=== PATIENT | male | born 1935 | race Caucasian/White ===

== ENCOUNTER 2017-01-27 20:52 | Emergency (ER) | payer MEDICARE, MEDICAID ==
[~2017-01-27] VITALS: Ht 172.7 cm; Wt 80.9 kg
[~2017-01-27 20:52] MED LIST: HYDR-2164 PO
[2017-01-27 20:53] VITALS: Ht 172.7 cm; Wt 80.9 kg
--- OUTSIDE RECORDS SUMMARY | 2017-01-27 20:57 | XMS REPORT ---
Author Author [facility]. Organization [facility] Address [address] [place] [address] Phone [phone] Summary purpose CCDA Sent to [facility] Chief Complaint and Reason for Visit No authorized Reason for Visit (Admitting Diagnosis) is available for this visit. Problem list Condition Status Certainty Chronicity Onset .Fracture of Pelvis Active Encounters The following conditions tracked for encounter diagnoses were recorded for this visit: Finding or Diagnosis Status Certainty Chronicity Onset .Fracture of Pelvis Active Medications Home Medications Medication Directions Started Status Source Effexor XR 150 mg capsule,extended release 1 tablet oral 2 times per day Current Family recall from memory Wellbutrin 75 mg tablet 1 tablet oral -Daily Current Family recall from memory bacitracin Topical 1 applicator Top -Daily Current diltiazem CD 180 mg capsule,extended release 24 hr 180 mg Oral -Daily Current docusate sodium 100 mg tablet 100 mg Oral 2 times per day Current donepezil 10 mg tablet 10 mg Oral At bed time Current finasteride 5 mg tablet 5 mg Oral -Daily Current Lopressor Oral 25 mg Oral -Daily Current midodrine 10 mg tablet 10 mg Oral 2 times per day Current oxybutynin chloride 5 mg tablet 5 mg Oral 3 times per day Current QUEtiapine 25 mg tablet 12.5 mg Oral 2 times per day Current venlafaxine 75 mg tablet 150 mg Oral 2 times per day Current acetaminophen 325 mg tablet 1 tablet Oral As Needed Every 4 Hours Current Milk of Magnesia Oral 30 ml Oral As needed Current Allergies, adverse reactions, alerts Allergen Category Ingredient Status Reaction Severity Onset Penicillins Drug Penicillins Active muscle relaxers Drug muscle relaxers Active lisinopril Drug lisinopril Active Immunizations No immunizations recorded for this patient visit Relevant diagnostic tests and/or laboratory data RESULTS :30:00 Discharge Summary To skilled unit at [place]. :54:12 Discharge Summary Pt admitted with fx of left iliac crest of pelvis, and three ribs on left. Pain control and mobility and monitoring of blood loss. Has had a week in skilled - has improved markedly in re to pain control and mobility - remains confused, but is improved. CBC :50:00 Result Normal Range Units WBC 7.95 5.8-10.8 x103/mm3 Neutrophil % 61.9 50-70 % Lymph % L 12.6 20-50 % [place] % H 22.8 1.0-9.0 % Eosinophil % 2.4 0-4 % Basophil % 0.3 0-2 % Neutrophil # 4.93 3.0-7.0 x103/mm3 Lymph # 1.00 1.0-4.0 x103/mm3 [place] # H 1.81 0.0-0.8 x103/mm3 Eosinophil # 0.19 0-0.5 x103/mm3 Basophil # 0.02 0-0.2 x103/mm3 RBC L 4.51 4.60-6.20 x103/mm3 HGB 14.5 14.0-18.0 g/dl HCT 43.9 42.0-52.0 % MCV H 97.3 80-94 FL MCH H 32.2 27.0-31.0 pg MCHC 33.0 32.0-36.0 g/dl RDW 12.8 12-15 % Platelet 153 150-400 x103/mm3 MPV H 10.8 6.0-10.0 FL Chemistry Group :50:00 Result Normal Range Units Sodium 140 134-145 mmol/L Potassium 4.6 3.6-5.0 mmol/L Chloride 103 98-107 mmol/L CO2 29 22-30 mmol/L Glucose 87 75-110 mg/dl BUN H 46 9-20 mg/dl Creatinine 1.6 0.8-1.7 mg/dl Calcium 9.3 8.4-10.2 mg/dl History of procedures No procedures recorded for this patient visit. Functional status Functional Status Finding Observation Time Weight Bearing Statu Full :07 Transferring/Ambulat Dependent :24 Bathing Dependent :24 Dressing Dependent :24 Eating Dependent :24 Drinking Dependent :24 Toileting Dependent : Able to Turn Self in Needs Assistance :24 Cognitive Status Finding Observation Time Level of Consciousne Confused :49 Oriented to Person Yes :[address] No :49 Oriented to Time No :49 Combative Mild :02 Eyes - PAUL No :49 Vital signs Type Value Date Respirations 16 :51 Pulse 66 :51 O2 Saturation 100% :51 Systolic Blood Press 135mm/HG :51 Diastolic Blood Pres 86mm/HG :51 Temperature (Fahr) 97.6Degrees :51 Height 158.8in :30 Weight 158.8LB :30 Social history Type Value Smoking Status NEVER SMOKER Treatment Plan Treatment Plan at Dismiss to OR - skilled care. PT and OT for mobility and self care. See orders. xpath-functions" xmlns:xs="http://www.[employer]/2000/Tiangua OnlineLSchema" />Plan to decrease pain meds as able, and hope mental status will clear as this is xpath-functions" xmlns:xs="http://www.Moblyorg/2000/Tiangua OnlineLSchema" />done. Cont seroquel for now due to hallucinations. High risk for fall and xpath-functions" xmlns:xs="http://www.[employer]/2000/Tiangua OnlineLSchema" />injury. Hospital discharge instructions No discharge instruction text is available for this visit.
--- OUTSIDE RECORDS SUMMARY | 2017-01-27 20:57 | XMS REPORT ---
Author Author [facility]. Organization [facility] Address [address] [place] [address] Phone [phone] Summary purpose CCDA Sent to [facility] Chief Complaint and Reason for Visit Admit Diagnosis 1 TRAUM FX AFTERCARE NEC Problem list Condition Status Certainty Chronicity Onset [...] Relevant diagnostic tests and/or laboratory data RESULTS [id number]:30:00 Discharge Summary To skilled unit at [place]. :54:12 Discharge Summary Pt admitted with fx [...] % Lymph % L 12.6 20-50 % [place] % H 22.8 1.0-9.0 % Eosinophil % 2.4 0-4 % Basophil % 0.3 0-2 % Neutrophil # 4.93 3.0-7.0 x103/mm3 Lymph # 1.00 1.0-4.0 x103/mm3 [place] # H 1.81 0.0-0.8 x103/mm3 Eosinophil # [...] Treatment Plan Treatment Plan at Dismiss to [place] - skilled care. PT and OT for mobility and self care. See orders. xpath-functions" xmlns:xs="http://www.Jaspersoft/2000/MusiCareschema" />Plan to decrease pain meds as able, and hope mental status will clear as this is xpath-functions" xmlns:xs="http://www.[employer]asp[employer]/2000/MusiCareschema" />done. Cont seroquel for now due to hallucinations. High risk for fall and xpath-functions" xmlns:xs="http://www.Jaspers[employer]/2000/NuView Systemsa" />injury. Hospital discharge instructions No discharge instruction text is available for this visit.
--- OUTSIDE RECORDS SUMMARY | 2017-01-27 20:57 | XMS REPORT | Continuity of Care Document ---
Author Author [facility] Organization [facility] Address Unknown Phone Unavailable Allergies Active Description Code Type Severity Reaction Onset Reported/Identified Relationship to Patient Clinical Status Yes muscle relaxers Drug Allergy N/A N/A 06/12/2013 Confirmed or Verified Yes Penicillins 476 Drug Allergy N/A N/A 06/12/2013 Confirmed or Verified Yes lisinopril 658 Drug Allergy N/A N/A 06/25/2013 Confirmed or Verified Medications Problems Date Dx Coded Attending Type Code Diagnosis Diagnosed By 07/03/2013 VERONICA ARBOLEDA MD 294.20 DEMENTIA NOS W/O BEHAV 07/03/2013 VERONICA ARBOLEDA MD 311 DEPRESSIVE DISORDER NEC 07/03/2013 VERONICA ARBOLEDA MD 401.9 HYPERTENSION NOS 07/03/2013 VERONICA ARBOLEDA MD 427.89 CARDIAC DYSRHYTHMIAS NEC 07/03/2013 VERONICA ARBOLEDA MD 458.0 ORTHOSTATIC HYPOTENSION 07/03/2013 VERONICA ARBOLEDA MD 564.00 CONSTIPATION NOS 07/03/2013 VERONICA ARBOLEDA MD 599.0 URIN TRACT INFECTION NOS 07/03/2013 VERONICA ARBOLEDA MD 600.00 PROS HYPERTR S OBST/LUTS 07/03/2013 VERONICA ARBOLEDA MD 781.2 ABNORMALITY OF GAIT 07/03/2013 VERONICA ARBOLEDA MD V15.88 HX FALL 07/03/2013 VERONICA ARBOLEDA MD V54.12 TRAUM LOW ARM FX AFTCARE 07/03/2013 VERONICA ARBOLEDA MD V57.89 REHABILITATION PROC NEC 07/09/2013 VERONICA ARBOLEDA MD 401.9 HYPERTENSION NOS 07/09/2013 VERONICA ARBOLEDA MD 782.1 NONSPECIF SKIN ERUPT NEC 07/13/2013 ADRI PERSAUD 401.9 HYPERTENSION NOS 07/13/2013 ADRI PERSAUD 789.04 ABDOMINAL PAIN LT LW HARRISON 04/23/2014 SANGEETHA HUBBARD, IRVIN Abraham 780.4 DIZZINESS AND GIDDINESS 09/02/2014 VERONICA ARBOLEDA MD 784.0 HEADACHE 09/14/2014 SCARLET MCCORMACK MD 276.51 DEHYDRATION 09/14/2014 CSARLET MCCORMACK MD 294.20 DEMENTIA NOS W/O BEHAV 09/14/2014 SCARLET MCCORMACK MD 332.0 PARALYSIS AGITANS 09/14/2014 SCARLET MCCORMACK MD 401.9 HYPERTENSION NOS 09/14/2014 SCARLET MCCORMACK MD 807.03 FRACTURE THREE RIBS-CLOS 09/14/2014 SCARLET MCCORMACK MD 808.49 PELVIC FRACTURE NEC-CLOS 09/14/2014 SCARLET MCCORMACK MD E849.7 ACCID IN RESIDENT INSTIT 09/14/2014 SCARLET MCCORMACK MD E888.9 FALL NOS 09/20/2014 VERONICA ARBOLEDA MD 276.51 DEHYDRATION 09/20/2014 VERONICA ARBOLEDA MD 294.20 DEMENTIA NOS W/O BEHAV 09/20/2014 VERONICA ARBOLEDA MD 298.9 PSYCHOSIS NOS 09/20/2014 VERONICA ARBOLEDA MD 332.0 PARALYSIS AGITANS 09/20/2014 VERONICA ARBOLEDA MD 401.9 HYPERTENSION NOS 09/20/2014 VERONICA ARBOLEDA MD V54.19 TRAUM FX AFTERCARE NEC 09/20/2014 VERONICA ARBOLEDA MD V57.89 REHABILITATION PROC NEC 10/05/2015 VERONICA ARBOLEDA MD I10. Essential (primary) hypertension 08/12/2016 LAURA LY S01.81XA Laceration w/o foreign body of oth part of head, init encntr 08/12/2016 LAURA LY W19.XXXA Unspecified fall, initial encounter 08/12/2016 LAURA LY Y92.[address] in long-term as place 08/12/2016 LAURA LY Z23 Encounter for immunization 10/10/2016 VERONICA ARBOLEDA MD I10 Essential (primary) hypertension Procedures Code Description [place] [address] ROUTINE VENIPUNCTURE VERONICA ARBOLEDA MD 07/09/2013 27435 COMPREHEN METABOLIC PANEL VERONICA ARBOLEDA MD 07/09/2013 00683 ASSAY OF PARATHORMONE VERONICA ARBOLEDA MD 07/09/2013 94465 COMPLETE CBC, AUTOMATED VERONICA ARBOLEDA MD 07/09/2013 52286 PROTHROMBIN TIME VERONICA ARBOLEDA MD 07/09/2013 63976 RBC SED RATE, AUTOMATED VERONICA ARBOLEDA MD 07/09/2013 91637 THROMBOPLASTIN TIME, PARTIAL VERONICA ARBOLEDA MD 07/09/2013 17722 C-REACTIVE PROTEIN VERONICA ARBOLEDA MD 07/09/2013 73056 COMPREHEN METABOLIC PANEL ADRI PERSAUD 07/12/2013 11352 URINALYSIS, AUTO, W/O SCOPE ADRI PERSAUD 07/12/2013 76862 COMPLETE CBC, AUTOMATED ADRI PERSAUD 07/12/2013 18643 RBC SED RATE, AUTOMATED ADRI PERSAUD 07/12/2013 39166 EMERGENCY DEPT VISIT ADRI PERSAUD 07/12/2013 J1885 KETOROLAC TROMETHAMINE INJ ADRI PERSAUD 07/12/2013 38158 COMPLETE CBC, AUTOMATED IRVIN VIVAS MD 04/23/2014 67883 COMPREHEN METABOLIC PANEL VERONICA ARBOLEDA MD 09/02/2014 57867 ASSAY THYROID STIM HORMONE VERONICA ARBOLEDA MD 09/02/2014 25686 COMPLETE CBC, AUTOMATED VERONICA ARBOLEDA MD 09/02/2014 52066 METABOLIC PANEL TOTAL CA VERONICA ARBOLEDA MD 10/05/2015 71851 ASSAY THYROID STIM HORMONE VERONICA ARBOLEDA MD 10/05/2015 72213 COMPLETE CBC, AUTOMATED VERONICA ARBOLEDA MD 10/05/2015 42827 REPAIR SUPERFICIAL WOUND(S) LAURA LY 08/12/2016 47993 IMMUNIZATION ADMIN LAURA LY 08/12/2016 43049 TD VACCINE NO PRSRV >/=7 IM LAURA LY 08/12/2016 58981 EMERGENCY DEPT VISIT LAURA LY 08/12/2016 47298 METABOLIC PANEL TOTAL CA VERONICA ARBOLEDA MD 10/10/2016 97015 ASSAY THYROID STIM HORMONE VERONICA ARBOLEDA MD 10/10/2016 02434 COMPLETE CBC, AUTOMATED VERONICA ARBOLEDA MD 10/10/2016 Encounters ACCT No. Visit Date/Time Discharge Status Pt. Type Provider Facility Loc./Unit Complaint [id number] 11/26/2013 13:40:00 11/26/2013 23 :59:59 CLS Outpatient
--- OUTSIDE RECORDS SUMMARY | 2017-01-27 20:57 | XMS REPORT | Continuity of Care Document ---
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 - TORUS FX RADIUS/ULNA-ASHER - *Acute Fx wrist - *Acute TORUS FX RADIUS/ULNA-ASHER - Improved 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 Family history of malignant neoplasm of prostate - *Chronic Laceration of forehead - *Acute Family History Family Member Diagnosis Age At Onset Status (Alive) Hypertension Yes Social History Social History Element Description Quantity Unknown Allergies, Adverse Reactions, Alerts Substance Reaction Severity Status DILTIAZEM Unknown LISINOPRIL Unknown PENICILLINS Unknown Medications Medication Instructions Dosage Effective Dates (start - stop) Status Sinemet 10 mg-100 mg tablet take 1 tablet by oral route 2 times every day 0 - Active Norvasc 5 mg tablet take 1 tablet (5MG) by oral route every day 5 MG - Active Zantac 150 mg tablet take 1 tablet (150MG) by oral route every day 150 MG - Active 2 TABS BID - Active Toprol XL 25 mg tablet,extended release Take 1 tablet by mouth every day. - Active polyethylene glycol 3350 17 gram oral powder packet take 1 packet (17G) by oral route every day mixed with 8 oz. water, juice, soda, coffee or tea 17 G - Active bisacodyl 10 mg rectal suppository insert 1 suppository (10MG) by rectal route every day as needed for constipation 10 MG - Active Milk of Magnesia 400 mg/5 mL oral suspension take 30 milliliter by oral route every day as needed, followed by a full glass (8 oz) of liquid 0 - Active Systane 0.4 %-0.3 % eye drops - Active acetaminophen 325 mg tablet take 1 tablet (325MG) by oral route every 6 hours as needed 325 MG - Active Immunizations Vaccine Date Status Comments Tdap (Boostrix r) completed Results Test Name Date and Time Measure Units Reference Range Abnormal Flag Comments Unknown Vital Signs Date / Time: Height Weight Pulse Rate Blood Pressure Temperature /13:56:00 66.00 in 173.00 lbs 74 /min 112/80 mm[Hg] Procedures Procedure Date Unknown Encounters Encounter Location Date Patient Visit [facility] Patient Visit [facility] Patient [facility] Patient Visit [facility] Ortho Patient Visit [facility] Patient Visit [facility] Ortho Patient Visit [facility] Urology Patient Visit [facility] Surg Patient Visit [facility] Advance Directives Directive Effective Date Unknown
--- OUTSIDE RECORDS SUMMARY | 2017-01-27 20:57 | XMS REPORT ---
Author Author [facility]. Organization [facility] Address [address] [place] [address] Phone [phone] Summary purpose CCDA Sent to [facility] Chief Complaint and Reason for Visit No authorized Reason for Visit (Admitting Diagnosis) is available for this visit. Problem list No authorized problems tracked for continuity of care are available for this visit. Encounters No authorized problems tracked for encounter diagnoses are available for this visit. Medications No home medications recorded for this patient visit Allergies, adverse reactions, alerts Allergen Category Ingredient Status Reaction Severity Onset Penicillins Drug Penicillins Active muscle relaxers Drug muscle relaxers Active lisinopril Drug lisinopril Active Immunizations No immunizations recorded for this patient visit Relevant diagnostic tests and/or laboratory data RESULTS CBC :54:00 Result Normal Range Units WBC 5.85 5.8-10.8 x103/mm3 Neutrophil % 60.7 50-70 % Lymph % L 16.8 20-50 % [place] % H 18.8 1.0-9.0 % Eosinophil % 3.2 0-4 % Basophil % 0.5 0-2 % Neutrophil # 3.55 3.0-7.0 x103/mm3 Lymph # L 0.98 1.0-4.0 x103/mm3 [place] # H 1.10 0.0-0.8 x103/mm3 Eosinophil # 0.19 0-0.5 x103/mm3 Basophil # 0.03 0-0.2 x103/mm3 RBC 4.89 4.60-6.20 x103/mm3 HGB 15.6 14.0-18.0 g/dl HCT 47.5 42.0-52.0 % MCV H 97.1 80-94 FL MCH H 31.9 27.0-31.0 pg MCHC 32.8 32.0-36.0 g/dl RDW 13.5 12-15 % Platelet 151 150-400 x103/mm3 MPV H 11.2 6.0-10.0 FL Chemistry Group [id number]:54:00 Result Normal Range Units Sodium 144 134-145 mmol/L Potassium 4.4 3.6-5.0 mmol/L Chloride 105 98-107 mmol/L CO2 26 22-30 mmol/L Glucose 99 75-110 mg/dl BUN H 23 9-20 mg/dl Creatinine 1.5 0.8-1.7 mg/dl Calcium 9.3 8.4-10.2 mg/dl Special Chemistry Group [id number]:54:00 Result Normal Range Units TSH 1.22 0.50-6.00 uIU/mL History of procedures Procedure Code Code Type Description Date Performed Performing Physician 61055 CPT-4 METABOLIC PANEL TOTAL CA 10-05-2015 VERONICA ARBOLEDA 13909 CPT-4 COMPLETE CBC, AUTOMATED 10-05-2015 VERONICA ARBOLEDA 50924 CPT-4 ASSAY THYROID STIM HORMONE 10-05-2015 VERONICA ARBOLEDA Functional status No functional or cognitive status observations are available for this visit. Vital signs No authorized vital signs are available for this visit. Social history No Social History or smoking status observations were recorded for this visit. ( Unknown if ever smoked.) Treatment Plan No treatment plan text is available for this visit. Hospital discharge instructions No discharge instruction text is available for this visit.
--- OUTSIDE RECORDS SUMMARY | 2017-01-27 20:57 | XMS REPORT ---
Author Author [facility]. Organization [facility] Address [facility] [address] [place] [address] Phone [phone] Summary purpose CCDA Sent to [facility] Chief Complaint and Reason for Visit Admit Diagnosis 1 FELL, HIT HEAD, BLEEDING Problem list No authorized problems tracked for continuity of care are available for this visit. Encounters No authorized problems tracked for encounter diagnoses are available for this visit. Medications No medications recorded for this patient visit Allergies, adverse reactions, alerts Allergen Category Ingredient Status Reaction Severity Onset Penicillins Drug Penicillins Active muscle relaxers Drug muscle relaxers Active lisinopril Drug lisinopril Active Immunizations Status Date Not Given Reason Product Series # Effectiveness / Reaction Evp Sales Lot / Expiration Given 08-12-2016 TETANUS AND DIPHTHERIA TOX/PF 1 [employer]-PASTEUR [id number] / 11-30-2017 Relevant diagnostic tests and/or laboratory data No authorized results are available for this patient visit History of procedures Procedure Code Code Type Description Date Performed Performing Physician 77547 CPT-4 TD VACCINE NO PRSRV >/=7 IM 08-12-2016 LAURA RUDD 33076 CPT-4 REPAIR SUPERFICIAL WOUND(S) 08-12-2016 LAURA RUDD 18049 CPT-4 IMMUNIZATION ADMIN 08-12-2016 LAURA RUDD 46155 CPT-4 EMERGENCY DEPT VISIT 08-12-2016 LAURA RUDD Functional status Cognitive Status Finding Observation Time Level of Consciousne Lethargic :32 Oriented to Person Yes :[address] No [id number]:32 Oriented to Time No :32 Eyes - PAUL Yes :32 Right Pupil Reaction Brisk Constriction :32 Pupil Gauge - Right 3 mm :32 Left Pupil Reaction Brisk Constriction :32 Pupil Gauge - Left E 3 mm :32 Vital signs Type Value Date Respirations 16 [id number]:23 Pulse 74 :23 O2 Saturation 91% :23 Systolic Blood Press 146mm/HG :23 Diastolic Blood Pres 92mm/HG :23 Temperature (Fahr) 98.2Degrees :23 Social history Type Value Smoking Status NEVER SMOKER Treatment Plan No treatment plan text is available for this visit. Hospital discharge instructions No discharge instruction text is available for this visit.
--- OUTSIDE RECORDS SUMMARY | 2017-01-27 20:57 | XMS REPORT ---
Author Author [facility]. Organization [facility] Address [address] [place] [address] [address] [place] [address] Phone [phone] Summary purpose CCDA Sent to [facility] Chief Complaint and Reason for Visit Admit Diagnosis 1 HEADACHE Problem list No authorized problems tracked for [...] diagnostic tests and/or laboratory data RESULTS CBC :00:00 Result Normal Range Units WBC 7.41 5.8-10.8 x103/mm3 Neutrophil % 57.7 50-70 % Lymph % 23.1 20-50 % [place] % H 16.9 1.0-9.0 % Eosinophil % 1.6 0-4 % Basophil % 0.7 0-2 % Neutrophil # 4.28 3.0-7.0 x103/mm3 Lymph # 1.71 1.0-4.0 x103/mm3 [place] # H 1.25 0.0-0.8 x103/mm3 Eosinophil # 0.12 0-0.5 x103/mm3 Basophil # 0.05 0-0.2 x103/mm3 RBC 5.07 4.60-6.20 x103/mm3 HGB 16.0 14.0-18.0 g/dl HCT 48.0 42.0-52.0 % MCV H 94.7 80-94 FL MCH H 31.6 27.0-31.0 pg MCHC 33.3 32.0-36.0 g/dl RDW 12.8 12-15 % Platelet 186 150-400 x103/mm3 MPV H 11.2 6.0-10.0 FL Chemistry Group :00:00 Result Normal Range Units Sodium 143 134-145 mmol/L Potassium H 5.1 3.6-5.0 mmol/L Chloride 105 98-107 mmol/L CO2 25 22-30 mmol/L Glucose H 137 75-110 mg/dl BUN 20 9-20 mg/dl Creatinine 1.6 0.8-1.7 mg/dl Total Protein 6.6 6.3-8.2 g/dl Albumin 3.8 3.5-5.0 g/dl Calcium 9.5 8.4-10.2 mg/dl Alk Phos 84 38-126 U/L AST 23 14-36 U/L ALT 31 11-66 U/L T Bili .5 0.2-1.3 mg/dl A/G Ratio 1.3 Ratio Special Chemistry Group [id number]:00:00 Result Normal Range Units TSH 1.69 0.50-6.00 uIU/mL History of procedures Procedure Code Code Type Description Date Performed Performing Physician 02435 CPT-4 COMPLETE CBC, AUTOMATED 09-02-2014 VERONICA ARBOLEDA 08287 CPT-4 COMPREHEN METABOLIC PANEL 09-02-2014 VERONICA ARBOLEDA 61559 CPT-4 ASSAY THYROID STIM HORMONE 09-02-2014 VERONICA ARBOLEDA Functional status No functional or [...]
--- OUTSIDE RECORDS SUMMARY | 2017-01-27 20:58 | XMS REPORT ---
Author Author [facility]. Organization [facility] Address Critical access hospital E [facility] [address] [place] [address] Phone [phone] Summary purpose CCDA Sent to [facility] Chief Complaint and Reason for Visit Admit Diagnosis 1 PELVIC FRACTURE NEC-CLOS Problem list Condition Status Certainty Chronicity Onset .Fracture of Pelvis; fracture left pelvis; fell at skilled nursing Active Encounters The following conditions tracked for encounter diagnoses were recorded for this visit: Finding or Diagnosis Status Certainty Chronicity Onset .Fracture of Pelvis; fracture left pelvis; fell at skilled nursing Active Medications Home Medications Medication Directions Started [...] Relevant diagnostic tests and/or laboratory data RESULTS [id number] Discharge Summary Pt admitted with pelvic fx - left iliac crest, and left rib fx about 8th and 9th ribs. Has had challenge with pain control, agitation, confusion, and poor po intake. Will send to [facility] for cont PT, OT, pain control, and management of intake. CBC :05:00 Result Normal Range Units WBC 7.91 5.8-10.8 x103/mm3 Neutrophil % 59.2 50-70 % Lymph % L 14.0 20-50 % [place] % H 23.4 1.0-9.0 % Eosinophil % 2.9 0-4 % Basophil % 0.5 0-2 % Neutrophil # 4.68 3.0-7.0 x103/mm3 Lymph # 1.11 1.0-4.0 x103/mm3 [place] # H 1.85 0.0-0.8 x103/mm3 Eosinophil # 0.23 0-0.5 x103/mm3 Basophil # 0.04 0-0.2 x103/mm3 RBC 4.63 4.60-6.20 x103/mm3 HGB 14.8 14.0-18.0 g/dl HCT 45.3 42.0-52.0 % MCV H 97.8 80-94 FL MCH H 32.0 27.0-31.0 pg MCHC 32.7 32.0-36.0 g/dl RDW 13.1 12-15 % Platelet L 149 150-400 x103/mm3 MPV H 10.6 6.0-10.0 FL :20:00 Result Normal Range Units WBC 8.33 5.8-10.8 x103/mm3 Neutrophil % 68.2 50-70 % Lymph % L 13.4 20-50 % [place] % H 16.4 1.0-9.0 % Eosinophil % 1.6 0-4 % Basophil % 0.4 0-2 % Neutrophil # 5.68 3.0-7.0 x103/mm3 Lymph # 1.12 1.0-4.0 x103/mm3 [place] # H 1.37 0.0-0.8 x103/mm3 Eosinophil # 0.13 0-0.5 x103/mm3 Basophil # 0.03 0-0.2 x103/mm3 RBC 4.98 4.60-6.20 x103/mm3 HGB 16.0 14.0-18.0 g/dl HCT 47.7 42.0-52.0 % MCV H 95.8 80-94 FL MCH H 32.1 27.0-31.0 pg MCHC 33.5 32.0-36.0 g/dl RDW 13.0 12-15 % Platelet 164 150-400 x103/mm3 MPV H 10.2 6.0-10.0 FL Chemistry Group :05:00 Result Normal Range Units Sodium 138 134-145 mmol/L Potassium 4.5 3.6-5.0 mmol/L Chloride 107 98-107 mmol/L CO2 24 22-30 mmol/L Glucose 78 75-110 mg/dl BUN H 51 9-20 mg/dl Creatinine H 1.9 0.8-1.7 mg/dl Calcium 9.2 8.4-10.2 mg/dl :20:00 Result Normal Range Units Sodium 139 134-145 mmol/L Potassium 4.3 3.6-5.0 mmol/L Chloride 105 98-107 mmol/L CO2 24 22-30 mmol/L Glucose 109 75-110 mg/dl BUN H 23 9-20 mg/dl Creatinine 1.3 0.8-1.7 mg/dl Total Protein 6.9 6.3-8.2 g/dl Albumin 3.6 3.5-5.0 g/dl Calcium 9.7 8.4-10.2 mg/dl Alk Phos 65 38-126 U/L AST 26 14-36 U/L ALT 19 11-66 U/L T Bili .8 0.2-1.3 mg/dl A/G Ratio 1.1 Ratio History of procedures No procedures recorded for this patient visit. Functional status Functional Status Finding Observation Time Weight Bearing [employer](see comment) [id number] Transferring/Ambulat Device & Assistance :34 Bathing Dependent :34 Dressing Dependent :34 Eating Dependent :34 Drinking Dependent :34 Toileting Dependent :34 Able to Turn Self in Needs Assistance :34 Stairs Device & Assistance :34 Walker Yes :34 Cognitive Status Finding Observation Time Level of Consciousne Alert xpath-functions" xmlns:xs="http://www.w3.org/2000/XMLSchema" /> xpath-functions" xmlns:xs="http://www.[employer].org/XMLSchema" />Comment: patient does not always follow conversation appropriately, answer some questions appropriately. speech not always understandable. :15 Oriented to Person Yes :[address] No :15 Oriented to Time No :15 Vital signs Type Value Date Respirations 16 :40 Pulse 73 :40 O2 Saturation 93% :40 Systolic Blood Press 102mm/HG :40 Diastolic Blood Pres 66mm/HG :40 Temperature (Fahr) 98.1Degrees :40 Height 67in :00 Weight 161.8LB [id number] Social history Type Value Smoking Status UNKNOWN IF EVER SMOKED Treatment Plan Treatment Plan at Skilled care - PT, OT, pain control, push fluids, encourage food intake. Work xpath-functions" xmlns:xs="http://www.[employer].org/XMLSchema" />toward previous level of function. See skilled orders. Hospital discharge instructions No discharge instruction text is available for this visit.
--- OUTSIDE RECORDS SUMMARY | 2017-01-27 20:58 | XMS REPORT ---
Author Author [facility]. 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 Lot / Expiration Given 08-12-2016 TETANUS AND DIPHTHERIA TOX/PF 1 [employer] [id number] / 11-30-2017 Relevant diagnostic tests and/or laboratory data RESULTS CBC [id number] Result Normal Range Units WBC 6.04 5.8-10.8 x103/mm3 Neutrophil % 63.6 50-70 % Lymph % L 17.5 20-50 % [place] % H 15.9 1.0-9.0 % Eosinophil % 2.3 0-4 % Basophil % 0.7 0-2 % Neutrophil # 3.84 3.0-7.0 x103/mm3 Lymph # 1.06 1.0-4.0 x103/mm3 [place] # H 0.96 0.0-0.8 x103/mm3 Eosinophil # 0.14 0-0.5 x103/mm3 Basophil # 0.04 0-0.2 x103/mm3 RBC 5.04 4.60-6.20 x103/mm3 HGB 16.2 14.0-18.0 g/dl HCT 48.5 42.0-52.0 % MCV H 96.2 80-94 FL MCH H 32.1 27.0-31.0 pg MCHC 33.4 32.0-36.0 g/dl RDW 13.1 12-15 % Platelet 159 150-400 x103/mm3 MPV H 10.3 6.0-10.0 FL [id number]:00 Result Normal Range Units WBC L 4.82 5.8-10.8 x103/mm3 Result Amended on 2016-10-10 at 12:45:04. Previous status was FR. DISREGARD RESULTS. LABORATORY RESULTS ON INCORRECT PATIENT. 11:40 12 [facility] Collection Date/Time changed from 10/10/2016 06:50 to 10/10/2016 11:55 by LH Collection Date/Time changed from 10/10/2016 11:55 to 10/10/2016 06:50 by Neutrophil % 59.2 50-70 % Result Amended on 2016-10-10 at 12:45:04. Previous status was FR. DISREGARD RESULTS. LABORATORY RESULTS ON INCORRECT PATIENT. 11:40 10/10/16 [facility] Collection Date/Time changed from 10/10/2016 06:50 to 10/10/2016 11:55 by Collection Date/Time changed from 10/10/2016 11:55 to 10/10/2016 06:50 by Lymph % 23.2 20-50 % Result Amended on 2016-10-10 at 12:45:05. Previous status was FR. DISREGARD RESULTS. LABORATORY RESULTS ON INCORRECT PATIENT. 11:40 12 [facility] Collection Date/Time changed from 10/10/2016 06:50 to 10/10/2016 11:55 by LH Collection Date/Time changed from 10/10/2016 11:55 to 10/10/2016 06:50 by Clare % H 12.9 1.0-9.0 % Result Amended on 2016-10-10 at 12:45:05. Previous status was FR. DISREGARD RESULTS. LABORATORY RESULTS ON INCORRECT PATIENT. 11:40 12 [facility] Collection Date/Time changed from 10/10/2016 06:50 to 10/10/2016 11:55 by Collection Date/Time changed from 10/10/2016 11:55 to 10/10/2016 06:50 by Eosinophil % H 4.1 0-4 % Result Amended on 2016-10-10 at 12:45:05. Previous status was FR. DISREGARD RESULTS. LABORATORY RESULTS ON INCORRECT PATIENT. 11:40 12 [facility] Collection Date/Time changed from 10/10/2016 06:50 to 10/10/2016 11:55 by LH Collection Date/Time changed from 10/10/2016 11:55 to 10/10/2016 06:50 by Basophil % 0.6 0-2 % Result Amended on 2016-10-10 at 12:45:05. Previous status was FR. DISREGARD RESULTS. LABORATORY RESULTS ON INCORRECT PATIENT. 11:40 12 [facility] Collection Date/Time changed from 10/10/2016 06:50 to 10/10/2016 11:55 by LH Collection Date/Time changed from 10/10/2016 11:55 to 10/10/2016 06:50 by Neutrophil # L 2.85 3.0-7.0 x103/mm3 Result Amended on 2016-10-10 at 12:45:04. Previous status was FR. DISREGARD RESULTS. LABORATORY RESULTS ON INCORRECT PATIENT. 11:40 12 [facility] Collection Date/Time changed from 10/10/2016 06:50 to 10/10/2016 11:55 by Collection Date/Time changed from 10/10/2016 11:55 to 10/10/2016 06:50 by Lymph # 1.12 1.0-4.0 x103/mm3 Result Amended on 2016-10-10 at 12:45:05. Previous status was FR. DISREGARD RESULTS. LABORATORY RESULTS ON INCORRECT PATIENT. 11:40 10/10/16 [facility] Collection Date/Time changed from 10/10/2016 06:50 to 10/10/2016 11:55 by Collection Date/Time changed from 10/10/2016 11:55 to 10/10/2016 06:50 by Clare # 0.62 0.0-0.8 x103/mm3 Result Amended on 2016-10-10 at 12:45:05. Previous status was FR. DISREGARD RESULTS. LABORATORY RESULTS ON INCORRECT PATIENT. 11:40 12 [facility] Collection Date/Time changed from 10/10/2016 06:50 to 10/10/2016 11:55 by LH Collection Date/Time changed from 10/10/2016 11:55 to 10/10/2016 06:50 by Eosinophil # 0.20 0-0.5 x103/mm3 Result Amended on 2016-10-10 at 12:45:05. Previous status was FR. DISREGARD RESULTS. LABORATORY RESULTS ON INCORRECT PATIENT. 11:40 12 [facility] Collection Date/Time changed from 10/10/2016 06:50 to 10/10/2016 11:55 by LH Collection Date/Time changed from 10/10/2016 11:55 to 10/10/2016 06:50 by LH Basophil # 0.03 0-0.2 x103/mm3 Result Amended on 2016-10-10 at 12:45:05. Previous status was FR. DISREGARD RESULTS. LABORATORY RESULTS ON INCORRECT PATIENT. 11:40 12 [facility] Collection Date/Time changed from 10/10/2016 06:50 to 10/10/2016 11:55 by LH Collection Date/Time changed from 10/10/2016 11:55 to 10/10/2016 06:50 by LH RBC L 4.41 4.60-6.20 x103/mm3 Result Amended on 2016-10-10 at 12:45:05. Previous status was FR. DISREGARD RESULTS. LABORATORY RESULTS ON INCORRECT PATIENT. 11:40 12 [facility] Collection Date/Time changed from 10/10/2016 06:50 to 10/10/2016 11:55 by LH Collection Date/Time changed from 10/10/2016 11:55 to 10/10/2016 06:50 by HGB L 13.8 14.0-18.0 g/dl Result Amended on 2016-10-10 at 12:45:05. Previous status was FR. DISREGARD RESULTS. LABORATORY RESULTS ON INCORRECT PATIENT. 11:40 10/10/16 [facility] Collection Date/Time changed from 10/10/2016 06:50 to 10/10/2016 11:55 by LH Collection Date/Time changed from 10/10/2016 11:55 to 10/10/2016 06:50 by LH HCT L 39.8 42.0-52.0 % Result Amended on 2016-10-10 at 12:45:05. Previous status was FR. DISREGARD RESULTS. LABORATORY RESULTS ON INCORRECT PATIENT. 11:40 12 [facility] Collection Date/Time changed from 10/10/2016 06:50 to 10/10/2016 11:55 by LH Collection Date/Time changed from 10/10/2016 11:55 to 10/10/2016 06:50 by MCV 90.2 80-94 FL Result Amended on 2016-10-10 at 12:45:05. Previous status was FR. DISREGARD RESULTS. LABORATORY RESULTS ON INCORRECT PATIENT. 11:40 12 [facility] Collection Date/Time changed from 10/10/2016 06:50 to 10/10/2016 11:55 by LH Collection Date/Time changed from 10/10/2016 11:55 to 10/10/2016 06:50 by MCH H 31.3 27.0-31.0 pg Result Amended on 2016-10-10 at 12:45:05. Previous status was FR. DISREGARD RESULTS. LABORATORY RESULTS ON INCORRECT PATIENT. 11:40 10/10/16 [facility] Collection Date/Time changed from 10/10/2016 06:50 to 10/10/2016 11:55 by LH Collection Date/Time changed from 10/10/2016 11:55 to 10/10/2016 06:50 by MCHC 34.7 32.0-36.0 g/dl Result Amended on 2016-10-10 at 12:45:05. Previous status was FR. DISREGARD RESULTS. LABORATORY RESULTS ON INCORRECT PATIENT. 11:40 10/10/16 [facility] Collection Date/Time changed from 10/10/2016 06:50 to 10/10/2016 11:55 by LH Collection Date/Time changed from 10/10/2016 11:55 to 10/10/2016 06:50 by RDW 13.5 12-15 % Result Amended on 2016-10-10 at 12:45:05. Previous status was FR. DISREGARD RESULTS. LABORATORY RESULTS ON INCORRECT PATIENT. 11:40 10/10/16 [facility] Collection Date/Time changed from 10/10/2016 06:50 to 10/10/2016 11:55 by LH Collection Date/Time changed from 10/10/2016 11:55 to 10/10/2016 06:50 by Platelet 190 150-400 x103/mm3 Result Amended on 2016-10-10 at 12:45:05. Previous status was FR. DISREGARD RESULTS. LABORATORY RESULTS ON INCORRECT PATIENT. 11:40 12 [facility] Collection Date/Time changed from 10/10/2016 06:50 to 10/10/2016 11:55 by LH Collection Date/Time changed from 10/10/2016 11:55 to 10/10/2016 06:50 by MPV 9.8 6.0-10.0 FL Result Amended on 2016-10-10 at 12:45:05. Previous status was FR. DISREGARD RESULTS. LABORATORY RESULTS ON INCORRECT PATIENT. 11:40 1207 [facility] Collection Date/Time changed from 10/10/2016 06:50 to 10/10/2016 11:55 by Collection Date/Time changed from 10/10/2016 11:55 to 10/10/2016 06:50 by Chemistry Group [id number] Result Normal Range Units Sodium 143 134-145 mmol/L Potassium 4.6 3.6-5.0 mmol/L Chloride 107 98-107 mmol/L CO2 28 22-30 mmol/L Glucose H 131 75-110 mg/dl BUN 20 9-20 mg/dl Creatinine 1.23 0.8-1.7 mg/dl eGFR 56 ml/min. Calcium 10.2 8.4-10.2 mg/dl [id number]:50:00 Result Normal Range Units Sodium L 131 134-145 mmol/L Result Amended on 2016-10-10 at 12:45:05. Previous status was FR. DISREGARD RESULTS. LABORATORY RESULTS ON INCORRECT PATIENT. 11:40 12 [facility] Collection Date/Time changed from 10/10/2016 06:50 to 10/10/2016 11:55 by Collection Date/Time changed from 10/10/2016 11:55 to 10/10/2016 06:50 by Potassium 4.4 3.6-5.0 mmol/L Result Amended on 2016-10-10 at 12:45:05. Previous status was FR. DISREGARD RESULTS. LABORATORY RESULTS ON INCORRECT PATIENT. 11:40 12 [facility] Collection Date/Time changed from 10/10/2016 06:50 to 10/10/2016 11:55 by Collection Date/Time changed from 10/10/2016 11:55 to 10/10/2016 06:50 by Chloride L 94 98-107 mmol/L Result Amended on 2016-10-10 at 12:45:06. Previous status was FR. DISREGARD RESULTS. LABORATORY RESULTS ON INCORRECT PATIENT. 11:40 10/10/16 LL Collection Date/Time changed from 10/10/2016 06:50 to 10/10/2016 11:55 by LH Collection Date/Time changed from 10/10/2016 11:55 to 10/10/2016 06:50 by CO2 H 33 22-30 mmol/L Result Amended on 2016-10-10 at 12:45:06. Previous status was FR. DISREGARD RESULTS. LABORATORY RESULTS ON INCORRECT PATIENT. 11:40 12 [facility] Collection Date/Time changed from 10/10/2016 06:50 to 10/10/2016 11:55 by LH Collection Date/Time changed from 10/10/2016 11:55 to 10/10/2016 06:50 by Glucose 101 75-110 mg/dl Result Amended on 2016-10-10 at 12:45:06. Previous status was FR. DISREGARD RESULTS. LABORATORY RESULTS ON INCORRECT PATIENT. 11:40 12 [facility] Collection Date/Time changed from 10/10/2016 06:50 to 10/10/2016 11:55 by LH Collection Date/Time changed from 10/10/2016 11:55 to 10/10/2016 06:50 by BUN 12 9-20 mg/dl Result Amended on 2016-10-10 at 12:45:06. Previous status was FR. DISREGARD RESULTS. LABORATORY RESULTS ON INCORRECT PATIENT. 11:40 1207 [facility] Collection Date/Time changed from 10/10/2016 06:50 to 10/10/2016 11:55 by LH Collection Date/Time changed from 10/10/2016 11:55 to 10/10/2016 06:50 by Creatinine .92 0.8-1.7 mg/dl Result Amended on 2016-10-10 at 12:45:06. Previous status was FR. DISREGARD RESULTS. LABORATORY RESULTS ON INCORRECT PATIENT. 11:40 12 [facility] Collection Date/Time changed from 10/10/2016 06:50 to 10/10/2016 11:55 by LH Collection Date/Time changed from 10/10/2016 11:55 to 10/10/2016 06:50 by eGFR 79 ml/min. Result Amended on 2016-10-10 at 12:45:06. Previous status was FR. DISREGARD RESULTS. LABORATORY RESULTS ON INCORRECT PATIENT. 11:40 12 [facility] Collection Date/Time changed from 10/10/2016 06:50 to 10/10/2016 11:55 by Collection Date/Time changed from 10/10/2016 11:55 to 10/10/2016 06:50 by Calcium 9.3 8.4-10.2 mg/dl Result Amended on 2016-10-10 at 12:45:06. Previous status was FR. DISREGARD RESULTS. LABORATORY RESULTS ON INCORRECT PATIENT. 11:40 10/10/16 [facility] Collection Date/Time changed from 10/10/2016 06:50 to 10/10/2016 11:55 by Collection Date/Time changed from 10/10/2016 11:55 to 10/10/2016 06:50 by Special Chemistry Group [id number] Result Normal Range Units TSH 1.67 0.50-6.00 uIU/mL [id number]:50:00 Result Normal Range Units TSH 2.31 0.50-6.00 uIU/mL Result Amended on 2016-10-10 at 12:45:06. Previous status was FR. DISREGARD RESULTS. LABORATORY RESULTS ON INCORRECT PATIENT. 11:40 10/10/16 [facility] Collection Date/Time changed from 10/10/2016 06:50 to 10/10/2016 11:55 by Collection Date/Time changed from 10/10/2016 11:55 to 10/10/2016 06:50 by History of procedures No procedures recorded for this patient visit. Functional status No functional or cognitive status [...]
--- NOTE | 2017-01-27 21:04 | ERPDOC ---
Departure Impression Impression Referrals: VERONICA ARBOLEDA MD (Family) HPI - Fall/Injury General Chief Complaint: Fall Stated Complaint: FALL @ 1930, W/O LOC, LAC L EYE, GUTIERREZ Time Seen by Provider: 21:03 HPI - Fall/Injury Allergies: Coded Allergies: diltiazem HCl (Verified Allergy, Intermediate, RASH, 07/14/13) Penicillins (Unverified Allergy, Unknown, 06/03/13) Uncoded Allergies: MUSCLE RELAXER (Adverse Reaction, Unknown, MAKES PT UNMANAGABLE, 02/06/08) Past History Past Medical History Metabolic: hypertension Male: BPH, kidney stones Neurological: headaches Psychological: depression Surgical History General: hernia, neck Family History Family PMH: FOUND: other Vaccines Hx Influenza Vaccination: No Hx Pneumococcal Vaccination: No Hx Tetanus, Diptheria, Pertuss: Yes (05/27/13) Physical Exam General Vitals and Pain Weight: Kilograms: Height (feet): Height (inches): Triage Pain Scale: HERMAN REBOLLEDO MD Jan 27, 2017 21:04
--- NOTE | 2017-01-27 21:15 | ERPDOC ---
Departure Disposition Decision Date: Jan 27, 2017 Disposition Decision Time: 22:00 (XOCHILT PURVIS APRN) Disposition: 01 DISCHARGED HOME, SELF-CARE Impression Impression (XOCHILT PURVIS APRN) Impression: Primary Impression: Head injury, acute Encounter type: initial encounter Qualified Codes: S09.90XA - Unspecified injury of head, initial encounter Additional Impressions: Fall Encounter type: initial encounter Qualified Codes: W19.XXXA - Unspecified fall, initial encounter Facial laceration Encounter type: initial encounter Qualified Codes: S01.81XA - Laceration without foreign body of other part of head, initial encounter Skin avulsion Severity: Moderate (XOCHILT PURVIS APRN) Condition: Improved Seen By: Mid-level only (XOCHILT PURVIS APRN) Referrals: VERONICA ARBOLEDA MD (Family) Patient Instructions: Head Injury (ED), Laceration (ED) Problems/Meds/Labs Reviewed?: Yes Medications reviewed and manag: Yes (XOCHILT PURVIS APRN) Additional Instructions: Your CT of head and c-spine did not show any acute findings. Suture should be removed in your PCP's office on February 04. Wash suture area gently daily with soap and water and apply triple antibiotic, then apply clean dressing. Do not use peroxide. Leave steri strips on skin tears until they come off. Continue to monitor for any neurological changes (see treatment plan). Follow up care ordered?: Yes Mental Status: Alert (XOCHILT PURVIS APRN) HPI - Fall/Injury General Chief Complaint: Fall Stated Complaint: FALL @ 1930, W/O LOC, LAC L EYE, GUTIERREZ Time Seen by Provider: 21:03 Source: family, EMS (XOCHILT PURVIS APRN) Time Seen by Provider: 21:03 (HERMAN REBOLLEDO MD) HPI - Fall/Injury Initial Comments 81-year-old male brought to ED from [facility] after falling and striking his head. Fall was unwitnessed. Patient states he did not loose consciousness however patient does have dementia. Patient's states patient is only to ambulate with assistance of a walker and staff. unsure how patient even got up on his own. Patient has large contusion with laceration on left forehead. Patient denies any pain. Pain Scale: Now: 0/10 Context: unknown Loss of Consciousness: unsure Associated Symptoms: DENIES: abdominal pain, chest pain, confusion, dizziness, headache, lightheadedness, muscle spasms, nausea/vomiting, neck pain, ringing in ears, seizures, shortness of breath, slurred speech, trouble walking, vision changes (XOCHILT PURVIS APRN) Allergies: Coded Allergies: diltiazem HCl (Verified Allergy, Intermediate, RASH, 07/14/13) Penicillins (Unverified Allergy, Unknown, 06/03/13) Uncoded Allergies: MUSCLE RELAXER (Adverse Reaction, Unknown, MAKES PT UNMANAGABLE, 02/06/08) Past History Past Medical History Metabolic: hypertension, DENIES: diabetes Cardiac: DENIES: angina Respiratory: DENIES: asthma GI: DENIES: ulcers Male: BPH, kidney stones Neurological: headaches Psychological: dementia, depression (XOCHILT PURVIS APRN) Surgical History General: hernia, neck (XOCHILT PURVIS APRN) Family History Family PMH: FOUND: other (noncontributory) (XOCHILT PURVIS APRN) Vaccines Hx Influenza Vaccination: No Hx Pneumococcal Vaccination: No Hx Tetanus, Diptheria, Pertuss: Yes (05/27/13) (XOCHILT PURVIS APRN) Review of Systems Unable to Obtain ROS Due to: dementia (XOCHILT PURVIS APRN) Physical Exam General General Nourishment: well nourished, well developed, no acute distress, adult General Body Habitus: well groomed (XOCHILT PURVIS APRN) Vitals and Pain First Documented Vital Signs Date Time Temp Pulse Resp B/P Pulse Ox O2 Delivery O2 Flow Rate FiO2 01/27/17 20:53 98.1 73 16 142/95 98 Room Air (HERMAN REBOLLEDO MD) Vitals and Pain Weight: Kilograms: Height (feet): Height (inches): Triage Pain Scale: (XOCHILT PURVIS APRN) Eyes (brief) Eyes Brief: found: EOMI, PERRL (XOCHILT PURVIS APRN) ENMT Ear/Canal/Mastiod: NOT FOUND: blood, discharge Tympanic Membrane : Location: Bilateral Tympanic Membrane: FOUND Normal, NOT FOUND Bulging, NOT FOUND Erythema, NOT FOUND Fluid, NOT FOUND Retracted Nose: NOT FOUND: deformity Mouth/Dental/Tongue: FOUND: mucosa moist, NOT FOUND: loose teeth, tender teeth Pharynx: NOT FOUND: displacement, posterior drainage, uvular deviation Jaw: NOT FOUND: tenderness, trismus Face: NOT FOUND: sinus tenderness Head: symmetric Scalp: NOT FOUND: Perry's sign, abrasion, contusion, erythema, laceration Forehead: other (see below) Comments Approx. 5 cm full thickness stellate laceration to left forehead, oozing blood. (ALEXA PURVISS A JUNIOR ENGINEER) Neck (brief) Neck: FOUND: trachea midline, NOT FOUND: adenopathy, spasm, tenderness, thyromegaly (ALEXA PURVISS A JUNIOR ENGINEER) Respiratory (brief) Respiratory: FOUND: clear all singh, equal bilaterally, symmetrical (ALEXA PURVISS A JUNIOR ENGINEER) Cardiovascular (brief) Cardiac: FOUND: regular rate, regular rhythm (ALEXA PURVISS A JUNIOR ENGINEER) Abdomen (brief) Abdominal Brief: FOUND: bowel normo active x4, soft, NOT FOUND: tender (ALEXA PURVISS A JUNIOR ENGINEER) Musculoskeletal Joint : Side: Bilateral Joint: shoulder, elbow, wrist, hip, knee, ankle Joint Findings: FOUND: other (see below), NOT FOUND: ROM limited, deformity , discoloration, pain, swelling Comments Approx. 4 cm partial skin tear to left elbow. Approx. 3 cm partial skin tear to right wrist Approx. 6 cm partial skin tear to right forearm Back: NOT FOUND: spine point tenderness, tenderness (ALEXA PURVISS A JUNIOR ENGINEER) Integumentary (brief) Integumentary Brief: FOUND: dry, pink, warm (ALEXA PURVISS A JUNIOR ENGINEER) Neurologic Mental Status: FOUND: alert, oriented Cranial Nerves: NOT FOUND: facial asymmetry Motor #1: Motor Side: bilateral Motor Location: biceps, triceps, finger extensors, foot extension, review nurse strength Motor Degree: 5 Motor #2: Motor Side: bilateral Motor Location: quadriceps, hamstring Motor Degree: 4 Sensation: FOUND: soft touch intact x4 ext (ALEXA PURVISS A JUNIOR ENGINEER) Psychiatric (brief) Psychiatric Brief: FOUND: alert (ALEXA PURVISS A JUNIOR ENGINEER) Differential Diagnoses Considering: Abrasion, Contusion, Epidural Hematoma, Fracture, Sprain, Strain, Subdural Hematoma (ALEXA PURVISS A JUNIOR ENGINEER) Procedures Procedures Performed Procedures Performed: Laceration Repair (XOCHILT PURVIS JUNIOR ENGINEER) Laceration/Wound Repair Wound/Laceration Repair : Wound Location: face Wound Length (cm): 5 Depth, Shape: subcutaneous Irrigated: saline Prep: chlorasept Anesthesia: 1% Lidocaine c Epi Volume Anesthetic (ccs): 6 Type of Block: local Wound Debrided: minimal Suture Size: 5:0 Suture Type: prolene Number of Sutures: 13 Sterile Dressing Applied?: Yes (XOCHILT PURVIS APRN) Progress Results/Orders Orders Procedure Category Date Status Time Ct Head W/O Contrast CT 01/27/[address] Cervical Spine W/O CT 01/27/17 Taken Contrast Lidocaine 1% / Epi PHA 01/27/17 Complete 1:100,000 (Xylocaine 22:00 Dressing (Ed) EDM 01/27/17 Transmitted 23:36 Neomycin/Polymyxin/Bacitracin PHA 01/27/17 Complete (Neosporin 23:45 (HERMAN REBOLLEDO MD) Medications Current ED Medications Lidocaine/ Epinephrine (Xylocaine 1%/ Epi 1:100,000) 20 ml O ONCE SQ Last administered on 01/27/17 22:20; Start 01/27/17 at 22:00; Stop 01/27/17 at 22:01 ; Status DC Neomycin/ Polymyxin/ Bacitracin (Neosporin) 1 applic O ONCE TOP Last administered on 01/27/17 23:40; Start 01/27/17 at 23:45; Stop 01/27/17 at 23:46 ; Status DC (HERMAN REBOLLEDO MD) Progress Progress I discussed CT findings with patient's and answer questions. Patient was able to stand with assistance of staff which says is patient's normal. states patient is of his normal mentation. I discussed treatment plan/suture removal, follow-up with PCP and return precautions with who verbalized understanding. (XOCHILT PURVIS APRN) CT CT #1: CT: Head no contrast (no acute finding) CT #2: CT: C-Spine no contrast (no acute findings) (XOCHILT PURVIS APRN) XOCHILT PURVIS APRN Jan 27, 2017 21:15 HERMAN REBOLLEDO MD Jan 28, 2017 01:47
--- NOTE | 2017-01-27 21:26 | NUR ---
IMAGING PT TO IMAGING VIA CART
--- NOTE | 2017-01-27 21:38 | NUR ---
IMAGING PT RETURN TO ROOM VIA CART FROM IMAGING
[2017-01-27] MEDS ORDERED: LIDO76.5 TOP (21:43)
[2017-01-27] MEDS ORDERED: METO-275 PO (21:45)
[2017-01-27] MEDS ORDERED: VENL75TA4 PO (21:46)
[2017-01-27] MEDS ORDERED: [UNRECOGNIZED DRUG - CODE] PO (21:47)
[2017-01-27] MEDS ORDERED: BUPR150T3 PO (21:50)
[2017-01-27] MEDS ORDERED: LORA0.5T86 PO (21:51)
[2017-01-27] MEDS ORDERED: POLY17PO6 PO (21:51)
[2017-01-27] MEDS ORDERED: ASPI325T PO (21:52)
[2017-01-27] MEDS ORDERED: RANI150T12 PO (21:52)
[2017-01-27] MEDS ORDERED: ACET-62 PO (21:53)
[2017-01-27] MEDS ORDERED: HYDR-4246 PO ×2 (21:55→21:56)
[2017-01-27] MEDS ORDERED: CHOL100018 PO (21:55)
[2017-01-27] MEDS ORDERED: AMLO2.5T PO (21:57)
[2017-01-27] MEDS ORDERED: MAG-37 PO (21:58)
--- OUTSIDE RECORDS SUMMARY | 2017-01-27 21:58 | XMS REPORT | Continuity of Care Document ---
[...] 09/14/2014 SCARLET MCCORMACK MD 276.51 DEHYDRATION 09/14/2014 SCARLET MCCORMACK MD 294.20 DEMENTIA NOS W/O BEHAV [...] 08/12/2016 LAURA LY Y92.[address] in [facility] as place 08/12/2016 LAURA LY Z23 Encounter for immunization 10/10/2016 VERONICA ARBOLEDA MD I10 Essential (primary) hypertension Procedures Code [place] [address] ROUTINE VENIPUNCTURE VERONICA ARBOLEDA MD 07/09/2013 22078 COMPREHEN METABOLIC PANEL VERONICA ARBOLEDA MD 07/09/2013 77978 ASSAY OF PARATHORMONE VERONICA ARBOLEDA MD 07/09/2013 89453 COMPLETE CBC, AUTOMATED VERONICA ARBOLEDA MD 07/09/2013 90309 PROTHROMBIN TIME VERONICA ARBOLEDA MD 07/09/2013 49184 RBC SED RATE, AUTOMATED VERONICA ARBOLEDA MD 07/09/2013 48504 THROMBOPLASTIN TIME, PARTIAL VERONICA ARBOLEDA MD 07/09/2013 81694 C-REACTIVE PROTEIN VERONICA ARBOLEDA MD 07/09/2013 19093 COMPREHEN METABOLIC PANEL ADRI PERSAUD 07/12/2013 79357 URINALYSIS, AUTO, W/O SCOPE ADRI PERSAUD 07/12/2013 83988 COMPLETE CBC, AUTOMATED ADRI PERSAUD 07/12/2013 45824 RBC SED RATE, AUTOMATED ADRI PERSAUD 07/12/2013 43992 EMERGENCY DEPT VISIT ADRI PERSAUD 07/12/2013 J1885 KETOROLAC TROMETHAMINE INJ ADRI PERSAUD 07/12/2013 01784 COMPLETE CBC, AUTOMATED IRVIN VIVAS MD 04/23/2014 25449 COMPREHEN METABOLIC PANEL VERONICA ARBOLEDA MD 09/02/2014 14540 ASSAY THYROID STIM HORMONE VERONICA ARBOLEDA MD 09/02/2014 02758 COMPLETE CBC, AUTOMATED VERONICA ARBOLEDA MD 09/02/2014 24299 METABOLIC PANEL TOTAL CA VERONICA ARBOLEDA MD 10/05/2015 89667 ASSAY THYROID STIM HORMONE VERONICA ARBOLEDA MD 10/05/2015 92789 COMPLETE CBC, AUTOMATED VERONICA ARBOLEDA MD 10/05/2015 72693 REPAIR SUPERFICIAL WOUND(S) LAURA LY 08/12/2016 23418 IMMUNIZATION ADMIN LAURA LY 08/12/2016 93153 TD VACCINE NO PRSRV >/=7 IM LAURA LY 08/12/2016 75732 EMERGENCY DEPT VISIT LAURA LY 08/12/2016 81999 METABOLIC PANEL TOTAL CA VERONICA ARBOLEDA MD 10/10/2016 01666 ASSAY THYROID STIM HORMONE VERONICA ARBOLEDA MD 10/10/2016 63272 COMPLETE CBC, AUTOMATED VERONICA ARBOLEDA MD 10/10/2016 Encounters ACCT No. Visit Date/Time Discharge Status Pt. Type Provider Facility Loc./Unit Complaint [id number] 11/26/2013 13:40:00 11/26/2013 23 :59:59 CLS Outpatient
[2017-01-27] MEDS ORDERED: LIDOCAINE 1%/EPI 1:100,000 20ml MDV SQ ONE (22:00)
--- NOTE | 2017-01-27 22:00 | NUR ---
STATUS PT RESTING IN CART. PT UNABLE TO TELL ME WHERE HE IS, , WHAT MONTH/YEAR. WILL STATE FIRST NAME. DENIES PAIN AT THIS TIME. AT BEDSIDE.
--- NOTE | 2017-01-27 22:25 | NUR ---
PROVIDER PROVIDER AT BEDSIDE TO PLACE SUTURES
[2017-01-27] MEDS ORDERED: NEOMYCIN/POLYM/BACITR OINT PACKET TOP ONE (23:45)
--- NOTE | 2017-01-27 23:48 | NUR ---
REPORT REPORT CALLED TO ADRIANA PASTRANA RN GIVEN REPORT AT THIS TIME. ADRIANA GLEZ TO CONTACT AND SEND TRANSPORTATION.
--- NOTE | 2017-01-28 00:55 | NUR ---
STATUS PT RESTING WITH EYES CLOSED AT THIS TIME. [facility] TRANSPORTATION IN ROUTE.
[2017-01-28 01:17] VITALS: BP 165/99; PULSE 76; RESP 18; TEMP 98.1; O2SAT 94
--- NOTE | 2017-01-28 01:17 | NUR ---
DEPART PT TRANSFERRED FROM CART TO WHEEL CHAIR GAIT BELT AND ASSIST X2. REPORT PREVIOUSLY GIVEN TO ADRIANA GLEZ RN. PERSONAL BELONGINGS GATHERED. DRESSINGS TO FOREHEAD AND BILAT ARMS CLEAN/DRY/INTACT AND APPROPRIATE. NO ACTIVE BLEEDING AT THIS TIME. PT DENIES PAIN AND NAUSEA AT THIS TIME. DISCHARGE PAPER WORK WORK WITH AUTOMATIC GLUING MACHINE OPERATOR - DI CALLED/PROVIDED TO ADRIANA GLEZ RN. PT ESCORTED TO ED EXIT VIA WHEEL CHAIR AND IN CARE OF [facility]SP[facility]. NO SIGN OF DISTRESS.
--- NOTE | 2017-01-28 07:48 | DI ---
Indication: ITS.REASON: fell struck head PROCEDURE: CT HEAD W/O CONTRAST: Encounter: Initial Comparison: None Technique: Axial CT images through the head were performed without contrast. Iterative Reconstruction dose reducing technique was utilized. FINDINGS: The ventricles are of normal size, shape, and contour for the patient's age. There are scattered areas of low attenuation in the white matter which most likely represent changes from chronic microvascular ischemia. The brainstem, cerebellum, and cerebral hemispheres otherwise have a normal morphology and CT attenuation. There is no evidence of midline displacement. No hemorrhage, signs of acute territorial stroke, mass effect, mass lesions, or edema is evident. There is a left frontal contusion and laceration in regards the scalp. No calvarial fracture. IMPRESSION: 1. Cerebral atrophy and chronic microvascular ischemia. 2. Left frontal scalp hematoma and laceration. 3. No acute intracranial abnormality or hemorrhage. .
--- NOTE | 2017-01-28 08:59 | DI ---
Indication: ITS.REASON: 81-year-old male who fell struck head, dementia; history of cervical surgery. PROCEDURE: CT CERVICAL SPINE W/O CONTRAST: Encounter: Initial Comparison: None Technique: Axial CT images through the cervical spine were performed without contrast. Coronal and sagittal reformatted images were also obtained. Automated Exposure Control and Iterative Reconstruction dose reducing techniques were utilized. FINDINGS: Very extensive operative changes of the cervical spine noted with craniocervical fusion from the occiput to C6. No abnormal lucencies about the pedicular screws to suggest infection or loosening. Loss of the disc space at C2-3 where there is approximate 5 mm of anterolisthesis. Disc space loss at other levels as well. No acute fracture identified. Multilevel foraminal narrowing. Cervical thoracic junction normal. Lung window images through the apices clear. No soft tissue masses of the paraspinal regions. IMPRESSION: 1. Extensive operative changes with fusion of the cranial-cervical region. 2. There is anterolisthesis of C2 on C3. 3. No acute traumatic abnormality of the cervical spine. .
== END 2017-01-28 01:17 | disposition home or self-care (01) ==
LOC: ED 20:52
DX: S01.81XA Laceration without foreign body of other part of head, initial encounter (principal); W19.XXXA Unspecified fall, initial encounter; Y93.9 Activity, unspecified; Y92.129 Unspecified place in nursing home as the place of occurrence of the external cause; Y99.8 Other external cause status
CPT/HCPCS: 12013; 70450; 72125; 99284; A9270